=== PATIENT | male | born 1950 | race Caucasian/White ===

== ENCOUNTER 2021-08-30 14:34 | Inpatient (IN) | payer MEDICARE, OTHER ==
[~2021-08-30] VITALS: Ht 175.3 cm; Wt 128.6 kg
[2021-08-30 17:11] LABS: VENOUS BASE EXCESS 0.5 (-2.0-2.0); VENOUS HCO3 24.3 MEQ/L (23.0-27.0); VENOUS O2 SATURATION 98.8 % (60.0-80.0); VENOUS PARTIAL PRESSURE O2 192.8 mmHg (30.0-50.0); VENOUS PH 7.435 UNITS (7.330-7.430); VENOUS TOTAL CO2 25.4 MEQ/L (24.0-28.0)
[2021-08-30 17:16] LABS: BASO % 0.2 % (0.0-1.0); HEMATOCRIT 53.4 % (42.0-52.0); HEMOGLOBIN 18.1 g/dl (13.5-17.5); LYMPH # 0.9 10^3/uL (1.5-5.0); LYMPH % 6.9 % (24.0-44.0); MEAN CORPUSCULAR HEMOGLOBIN 29.8 pg (27.0-33.0); MEAN CORPUSCULAR HGB CONC 33.9 g/dl (32.0-36.5); MEAN CORPUSCULAR VOLUME 87.8 fl (80.0-96.0); MONO # 1.3 10^3/uL (0.0-0.8); MONO % 10.2 % (2.0-8.0); NEUTROPHILS # 10.7 10^3/uL (1.5-8.5); NEUTROPHILS % 81.7 % (36.0-66.0); PLATELET COUNT, AUTOMATED 106 10^3/uL (150-450); RED BLOOD COUNT 6.08 10^6/uL (4.30-6.10); WHITE BLOOD COUNT 13.1 10^3/uL (4.0-10.0)
[2021-08-30 17:57] LABS: RSV AMPLIFICATION NEGATIVE (NEGATIVE)
[2021-08-30 18:02] LABS: INR 1.67; PROTHROMBIN TIME 20.1 SECONDS (12.7-14.5)
[2021-08-30 18:03] LABS: PARTIAL THROMBOPLASTIN TIME 37.7 SECONDS (25.9-37.0)
[2021-08-30] MEDS ORDERED: NS 500 ML IV ONE (18:20)
[2021-08-30 18:25] LABS: ALBUMIN 2.8 GM/DL (3.2-5.2); BILIRUBIN,DIRECT 0.6 MG/DL (0.0-0.2); BILIRUBIN,TOTAL 2.8 MG/DL (0.2-1.0); CALCIUM LEVEL 8.6 MG/DL (8.8-10.2); CREATININE FOR GFR 1.31 MG/DL (0.70-1.30); GLOMERULAR FILTRATION RATE 57.3 (>42); POTASSIUM SERUM 4.1 MEQ/L (3.5-5.1); THYROID STIMULATING HORMONE 0.788 uIU/ML (0.358-3.740); TOTAL PROTEIN 6.2 GM/DL (6.4-8.2)
[2021-08-30] MEDS ORDERED: PROHANCE 279.3MG/ML 5ML VIAL As Ordered ONE (18:39)
[2021-08-30] MEDS ORDERED: traMADol 50 MG TAB PO ONE (22:35)
[2021-08-30] MEDS ORDERED: methylPREDNISolone 125MG 2ML VIAL IV ONE (23:00)
[2021-08-30] MEDS ORDERED: methylPREDNISolone 1,000 MG, VIAL MATE ADAPTER 1 EACH in NS 250 ML IV ONE (23:15)
[2021-08-30] MEDS ORDERED: GABA-282 PO ×2 (23:54)
[2021-08-30] MEDS ORDERED: FURO20TA2 PO (23:54)
[2021-08-30] MEDS ORDERED: RA K500C PO (23:54)
[2021-08-30] MEDS ORDERED: TRIA1CR80 TOP (23:54)
[2021-08-30] MEDS ORDERED: ELIQ5TAB PO (23:54)
[2021-08-30] MEDS ORDERED: RA B1TAB2 PO (23:54)
[2021-08-30] MEDS ORDERED: METF-839 PO (23:54)
[2021-08-30] MEDS ORDERED: FLON1SPR (23:54)
[2021-08-30] MEDS ORDERED: LISI20TA37 PO (23:54)
[2021-08-30] MEDS ORDERED: KETO2CR EXT (23:54)
[2021-08-30] MEDS ORDERED: ATOR40TA75 PO (23:54)
[2021-08-30] MEDS ORDERED: VITA200016 PO (23:54)
[2021-08-30] MEDS ORDERED: TROS60CA2 PO (23:54)
[2021-08-30] MEDS ORDERED: HOME MED LIST COMPLETE! XX SCH (23:55)
[2021-08-30] MEDS ORDERED: GLUCOSE 4GM CHEW TABLET PO PRN (23:55)
[2021-08-30] MEDS ORDERED: DEXTROSE 50% 50 ML SYRINGE IV PRN (23:55)
[2021-08-30] MEDS ORDERED: GLUCAGON INJ 1MG VIAL SC PRN (23:55)
[2021-08-31] VITALS (7 sets, daily range): BP systolic 107–146; BP diastolic 66–89
[2021-08-31] MEDS ORDERED: INSULIN LISPRO (NovoLOG) PER UNIT SC SCH
[2021-08-31] MEDS ORDERED: ASPIRIN 81MG ENTERIC TABLET PO SCH (01:10)
[2021-08-31] MEDS ORDERED: ASPIRIN 325 MG TAB PO ONE (02:15)
[2021-08-31] MEDS ORDERED: ASPIRIN 81 MG CHEW TABLET PO ONE (02:20)
[2021-08-31] MEDS: ATORVASTATIN 20 MG TAB PO SCH ×2 (02:29→20:28)
[2021-08-31 06:00] LABS: BASO % 0.1 % (0.0-1.0); HEMOGLOBIN 17.1 g/dl (13.5-17.5); LYMPH # 0.7 10^3/uL (1.5-5.0); LYMPH % 6.1 % (24.0-44.0); MEAN CORPUSCULAR HEMOGLOBIN 29.9 pg (27.0-33.0); MEAN CORPUSCULAR HGB CONC 33.5 g/dl (32.0-36.5); MEAN CORPUSCULAR VOLUME 89.3 fl (80.0-96.0); MONO # 0.5 10^3/uL (0.0-0.8); MONO % 4.2 % (2.0-8.0); NEUTROPHILS # 9.4 10^3/uL (1.5-8.5); RED BLOOD COUNT 5.71 10^6/uL (4.30-6.10); WHITE BLOOD COUNT 10.7 10^3/uL (4.0-10.0)
[2021-08-31 06:02] LABS: PLATELET COUNT, AUTOMATED 92 10^3/uL (150-450)
[2021-08-31 06:23] LABS: CALCIUM LEVEL 8.2 MG/DL (8.8-10.2); CREATININE FOR GFR 1.39 MG/DL (0.70-1.30); GLOMERULAR FILTRATION RATE 53.5 (>42); POTASSIUM SERUM 3.6 MEQ/L (3.5-5.1)
[2021-08-31] MEDS ORDERED: methylPREDNISolone 1,000 MG, VIAL MATE ADAPTER 1 EACH in NS 250 ML IV SCH (09:00)
[2021-08-31] MEDS ORDERED: ATORVASTATIN 20 MG TAB PO SCH (09:00)
[2021-08-31] MEDS ORDERED: predniSONE 20 MG TAB PO SCH (09:00)
[2021-08-31] MEDS: FUROSEMIDE 20 MG TAB PO SCH (09:06)
[2021-08-31] MEDS: INSULIN LISPRO (NovoLOG) PER UNIT SC SCH ×4 (09:06→20:28)
[2021-08-31] MEDS: GABAPENTIN 300 MG CAP PO SCH ×2 (09:06→20:28)
[2021-08-31] MEDS: ASPIRIN 81MG ENTERIC TABLET PO SCH (09:06)
[2021-08-31] MEDS: KETOCONAZOLE 2% CREAM EXT SCH ×2 (09:07→20:28)
[2021-08-31] MEDS: APIXABAN 5 MG TAB (ELIQUIS) PO SCH ×2 (12:18→20:28)
[2021-08-31] MEDS ORDERED: methylPREDNISolone 40MG 1ML VIAL IV SCH (14:20)
[2021-08-31] MEDS: methylPREDNISolone 1,000 MG, VIAL MATE ADAPTER 1 EACH in NS 250 ML IV SCH (17:44)
[2021-09-01 03:44] VITALS: BP 147/89
[2021-09-01 07:15] LABS: BASO % 0.3 % (0.0-1.0); EOS # 0.1 10^3/uL (0.0-0.5); EOS % 0.5 % (0.0-3.0); HEMATOCRIT 47.1 % (42.0-52.0); HEMOGLOBIN 16.4 g/dl (13.5-17.5); LYMPH # 0.6 10^3/uL (1.5-5.0); LYMPH % 4.8 % (24.0-44.0); MEAN CORPUSCULAR HEMOGLOBIN 30.9 pg (27.0-33.0); MEAN CORPUSCULAR HGB CONC 34.8 g/dl (32.0-36.5); MEAN CORPUSCULAR VOLUME 88.9 fl (80.0-96.0); MONO # 0.5 10^3/uL (0.0-0.8); MONO % 3.6 % (2.0-8.0); NEUTROPHILS # 11.9 10^3/uL (1.5-8.5); NEUTROPHILS % 89.4 % (36.0-66.0); PLATELET COUNT, AUTOMATED 103 10^3/uL (150-450); WHITE BLOOD COUNT 13.3 10^3/uL (4.0-10.0)
[2021-09-01 07:33] LABS: BLOOD UREA NITROGEN 36 MG/DL (7-18); CALCIUM LEVEL 9.2 MG/DL (8.8-10.2); CARBON DIOXIDE LEVEL 27 MEQ/L (21-32); CHLORIDE LEVEL 102 MEQ/L (98-107); CREATININE FOR GFR 1.19 MG/DL (0.70-1.30); GLOMERULAR FILTRATION RATE > 60.0 (>42); GLUCOSE, FASTING 190 MG/DL (70-100); POTASSIUM SERUM 3.7 MEQ/L (3.5-5.1); SODIUM LEVEL 138 MEQ/L (136-145)
[2021-09-01 08:07] VITALS: BP 147/89
[2021-09-01] MEDS: INSULIN LISPRO (NovoLOG) PER UNIT SC SCH ×4 (09:27→20:46)
[2021-09-01] MEDS: FUROSEMIDE 20 MG TAB PO SCH (09:27)
[2021-09-01] MEDS: ASPIRIN 81MG ENTERIC TABLET PO SCH (09:28)
[2021-09-01] MEDS: GABAPENTIN 300 MG CAP PO SCH ×2 (09:28→20:46)
[2021-09-01] MEDS: APIXABAN 5 MG TAB (ELIQUIS) PO SCH ×2 (09:28→20:45)
[2021-09-01] MEDS: KETOCONAZOLE 2% CREAM EXT SCH ×2 (09:29→20:49)
[2021-09-01] MEDS: methylPREDNISolone 1,000 MG, VIAL MATE ADAPTER 1 EACH in NS 250 ML IV SCH (14:49)
[2021-09-01 16:50] VITALS: BP 134/85
[2021-09-01 18:09] LABS: SSA SJOGRENS A <0.2 AI (0.0-0.9); SSB SJOGRENS B <0.2 AI (0.0-0.9)
[2021-09-01 18:24] VITALS: BP 138/80
[2021-09-01] MEDS: ATORVASTATIN 20 MG TAB PO SCH (20:46)
[2021-09-01] MEDS ORDERED: traMADol 50 MG TAB PO ONE (21:00)
[2021-09-01 22:00] VITALS: BP 140/84
[2021-09-02 05:52] LABS: BASO % 0.2 % (0.0-1.0); HEMATOCRIT 46.1 % (42.0-52.0); LYMPH # 0.5 10^3/uL (1.5-5.0); LYMPH % 4.2 % (24.0-44.0); MEAN CORPUSCULAR HGB CONC 34.7 g/dl (32.0-36.5); MEAN CORPUSCULAR VOLUME 86.5 fl (80.0-96.0); MONO # 0.4 10^3/uL (0.0-0.8); MONO % 3.3 % (2.0-8.0); NEUTROPHILS # 11.4 10^3/uL (1.5-8.5); NEUTROPHILS % 91.1 % (36.0-66.0); PLATELET COUNT, AUTOMATED 108 10^3/uL (150-450); RED BLOOD COUNT 5.33 10^6/uL (4.30-6.10); WHITE BLOOD COUNT 12.6 10^3/uL (4.0-10.0)
[2021-09-02 06:00] VITALS: BP 142/84
[2021-09-02 06:23] LABS: BLOOD UREA NITROGEN 39 MG/DL (7-18); CALCIUM LEVEL 8.8 MG/DL (8.8-10.2); CARBON DIOXIDE LEVEL 23 MEQ/L (21-32); CHLORIDE LEVEL 104 MEQ/L (98-107); GLOMERULAR FILTRATION RATE > 60.0 (>42); GLUCOSE, FASTING 161 MG/DL (70-100); POTASSIUM SERUM 3.8 MEQ/L (3.5-5.1); SODIUM LEVEL 137 MEQ/L (136-145)
[2021-09-02] MEDS: GABAPENTIN 300 MG CAP PO SCH ×2 (08:11→21:53)
[2021-09-02] MEDS: ASPIRIN 81MG ENTERIC TABLET PO SCH (08:11)
[2021-09-02] MEDS: APIXABAN 5 MG TAB (ELIQUIS) PO SCH ×2 (08:11→21:53)
[2021-09-02] MEDS: FUROSEMIDE 20 MG TAB PO SCH (08:11)
[2021-09-02] MEDS: INSULIN LISPRO (NovoLOG) PER UNIT SC SCH ×4 (08:11→21:56)
[2021-09-02] MEDS: KETOCONAZOLE 2% CREAM EXT SCH ×2 (08:12→21:54)
[2021-09-02] MEDS ORDERED: PRED10TA2 PO (09:09)
[2021-09-02] MEDS ORDERED: LEVO750T13 PO (09:09)
[2021-09-02] MEDS ORDERED: BACITAB PO (09:09)
[2021-09-02] MEDS: LevoFLOXacin 750 MG TABLET PO SCH (09:59)
[2021-09-02] MEDS: methylPREDNISolone 1,000 MG, VIAL MATE ADAPTER 1 EACH in NS 250 ML IV SCH (10:16)
[2021-09-02 14:00] VITALS: BP 125/71
[2021-09-02] MEDS: ATORVASTATIN 20 MG TAB PO SCH (21:53)
[2021-09-02 22:00] VITALS: BP 141/82
[2021-09-03] MEDS: LevoFLOXacin 750 MG TABLET PO SCH (05:53)
[2021-09-03 06:00] VITALS: BP 126/76
[2021-09-03 06:09] LABS: BASO % 0.1 % (0.0-1.0); HEMATOCRIT 44.9 % (42.0-52.0); HEMOGLOBIN 15.1 g/dl (13.5-17.5); LYMPH # 0.5 10^3/uL (1.5-5.0); LYMPH % 5.9 % (24.0-44.0); MEAN CORPUSCULAR HEMOGLOBIN 29.6 pg (27.0-33.0); MEAN CORPUSCULAR HGB CONC 33.6 g/dl (32.0-36.5); MONO # 0.4 10^3/uL (0.0-0.8); MONO % 4.9 % (2.0-8.0); NEUTROPHILS # 7.9 10^3/uL (1.5-8.5); NEUTROPHILS % 88.8 % (36.0-66.0); PLATELET COUNT, AUTOMATED 103 10^3/uL (150-450); WHITE BLOOD COUNT 8.9 10^3/uL (4.0-10.0)
[2021-09-03 06:36] LABS: BLOOD UREA NITROGEN 34 MG/DL (7-18); CALCIUM LEVEL 7.8 MG/DL (8.8-10.2); CARBON DIOXIDE LEVEL 29 MEQ/L (21-32); CHLORIDE LEVEL 106 MEQ/L (98-107); CREATININE FOR GFR 1.11 MG/DL (0.70-1.30); GLOMERULAR FILTRATION RATE > 60.0 (>42); GLUCOSE, FASTING 154 MG/DL (70-100); POTASSIUM SERUM 3.9 MEQ/L (3.5-5.1); SODIUM LEVEL 140 MEQ/L (136-145)
[2021-09-03] MEDS: GABAPENTIN 300 MG CAP PO SCH (08:50)
[2021-09-03] MEDS: ASPIRIN 81MG ENTERIC TABLET PO SCH (08:50)
[2021-09-03] MEDS: INSULIN LISPRO (NovoLOG) PER UNIT SC SCH (08:50)
[2021-09-03] MEDS: APIXABAN 5 MG TAB (ELIQUIS) PO SCH (08:50)
[2021-09-03] MEDS: FUROSEMIDE 20 MG TAB PO SCH (08:51)
[2021-09-03] MEDS: KETOCONAZOLE 2% CREAM EXT SCH (08:51)
[2021-09-03] MEDS: methylPREDNISolone 1,000 MG, VIAL MATE ADAPTER 1 EACH in NS 250 ML IV SCH (08:56)
== END 2021-09-03 11:02 | disposition home or self-care (01) | DRG 98 ==
LOC: M ED 14:34 → M ED INP 08-31 00:52 → ENRESERV 08-31 01:30 → M PCU 08-31 02:12 → M MSPAV 09-01 18:02
PROVIDERS: ADMIT Internal Medicine; ATTEND General Practice
PROC: B246ZZZ Ultrasonography of Right and Left Heart (ICD-10-PCS; principal; 2021-08-31)
DX: G37.3 Acute transverse myelitis in demyelinating disease of central nervous system (principal); I48.20 Chronic atrial fibrillation, unspecified; N39.0 Urinary tract infection, site not specified; Z68.41 Body mass index [BMI] 40.0-44.9, adult; Z79.01 Long term (current) use of anticoagulants; I10 Essential (primary) hypertension; E11.42 Type 2 diabetes mellitus with diabetic polyneuropathy; E78.5 Hyperlipidemia, unspecified; Z96.651 Presence of right artificial knee joint; Z98.1 Arthrodesis status; R32 Unspecified urinary incontinence; Z79.84 Long term (current) use of oral hypoglycemic drugs; Z79.899 Other long term (current) drug therapy; Z20.822 Contact with and (suspected) exposure to COVID-19; B96.1 Klebsiella pneumoniae [K. pneumoniae] as the cause of diseases classified elsewhere; R53.1 Weakness; R29.6 Repeated falls; E66.9 Obesity, unspecified